=== PATIENT | female | born 1975 | race Caucasian/White ===

== ENCOUNTER 2018-05-24 16:32 | Emergency (ER) | payer BC, OTHER ==
[2018-05-24] MEDS ORDERED: LORazepam 2 MG/ML INJ IVP ONE (17:12)
[2018-05-24] MEDS ORDERED: NS 1,000 ML IV ONE (17:12)
--- NOTE | 2018-05-24 17:17 | EDPHY ---
General Time Seen by Provider: 05/24/18 16:55 Narrative: CHIEF COMPLAINT: Heart racing, chest pressure, short of breath HISTORY OF PRESENT ILLNESS: Patient presents with complaints of heart racing, chest pressure, shortness of breath. Symptoms started earlier today while at work around 3:30 p.m.. A fit bit watch that she was wearing showed a heart rate of 120 beats per minute. She felt some lightheadedness with this. Constant duration. No predictable modifying factors for this. She contacted a co-worker who helped her, and she presents here with her spouse. She has no extremity erythema edema or pain. No history of venous thrombolic event. No use of exogenous hormones. No recent travel or surgery. No hemoptysis. No cough. No fever. No headache or neck pain. No previous incidence of this or history of coronary artery disease. She does have some history of anxiety and depression. There may be a component to this she thinks. No other associated complaints or modifying factors. REVIEW OF SYSTEMS: 10 systems were reviewed and negative with the exception of the elements mentioned in the history of present illness. PCP: Dr. Enriqueta Maloney SPECIALISTS: None currently PAST MEDICAL HISTORY: Anxiety, depression PAST SURGICAL HISTORY: No recent surgical history. Tonsillectomy remotely. Ocular surgery remotely SOCIAL HISTORY: Quit smoking 2002. Lives independently with her spouse and 2 children. Works in finance. FAMILY HISTORY: Noncontributory. No 1st degree relatives with coronary artery disease. EXAMINATION: Vitals: Triage VS reviewed General Appearance: Alert, no distress. Anxious. Nontoxic and well-appearing. Head: normocephalic, atraumatic Eyes: Pupils equal and round, no conjunctival pallor or injection ENT, Mouth: Mucous membranes moist Neck: Normal inspection, supple, non-tender Respiratory: Lungs are clear to auscultation Cardiovascular: Regular rate and rhythm. No murmur. Good signs of perfusion distally. Radial pulses and DP pulses are symmetric. Gastrointestinal: Abdomen is soft and nontender Back: non-tender, no bony abnormalities Neurological: A&O, nonfocal, normal gait Skin: Warm and dry, no rash Extremities: Nontender, no pedal edema Psychiatric: Anxious mood and affect. DIFFERENTIAL DIAGNOSES: Including but not limited to PE, anxiety, ACS, stable angina, unstable angina, MDM: 5:10 p.m. Shortness of breath, chest pressure and intermittent palpitations over the past. She is in no acute distress but does appear to be somewhat anxious and does have some intermittent tachycardia. The highest heart rate I witnessed is 100 while I was in the room. EKG is unremarkable with sinus rhythm at 90 beats per minute. She reports a heart rate of 120 at work this afternoon. I have ordered laboratory studies, chest x-ray, IV fluid and Ativan. Cardiac workup will be commenced. She is perc negative here, but with her heart rate greater than 100 at home, I have ordered a D-dimer. [place] heart score is 1. 5:50 p.m. CBC, chemistry, troponin, D-dimer and BNP are all within normal limits. Chest x -ray pending. 6:30 p.m. Patient re-evaluated. She is feeling much better after the Ativan only. I did not intervene otherwise. I discussed the negative findings. We discussed shared pathway decision making. I did recommend an offer monitoring her here for a repeat, 4 hr troponin. I also offered admission to the hospital. She has consented these and would like to go home. She states that she is feeling much better. She has no chest pain. She has some minimal dizziness that is non vertiginous. I discussed risks, benefits and alternatives between she and her spouse. I do feel that she has the ability to make that decision that she has made to go home. We discussed that she may return here at any time should she change her mind. We discussed that she needs to return here for any return of her chest pain, elevated heart rate, syncope or exertional complaints. She is comfortable this plan. She will contact her primary care physician. I will order a cardiology outpatient consultation. She is well-appearing and discharged home stable condition with normal vital signs. SUPERVISION: Patient was independently examined, but I discussed the case with my secondary supervising physician Dr. Turner CONSULTATION: None. Outpatient cardiology referral - Diagnostics Imaging Results: Imaging Impressions Chest X-Ray 05/24/18 17:16 Impression: Negative. - History Smoking Status: Former smoker - Objective Vital Signs: Initial Vital Signs Temperature (C) 97.3 F 05/24/18 16:40 Heart Rate 93 05/24/18 16:40 Respiratory Rate 19 05/24/18 16:40 Blood Pressure 138/77 H 05/24/18 16:40 O2 Sat (%) 96 05/24/18 16:40 O2 Delivery Mode Room Air Allergies/Adverse Reactions: Penicillins Allergy (Severe, Verified 05/24/18 16:39) Hives Home Medications: Medication Instructions Recorded Bupropion HCl 05/24/18 Spironolactone 05/24/18 VYVANSE 05/24/18 Zoloft 50mg (*) 05/24/18 Laboratory Results: Laboratory Results 05/24/18 16:58 05/24/18 16:58 05/24/18 05/24/18 05/24/18 17:13 16:58 16:58 WBC RBC Hgb Hct MCV MCH MCHC RDW Plt Count MPV Neut % (Auto) Lymph % (Auto) Sharkey % (Auto) Eos % (Auto) Baso % (Auto) Nucleat RBC Rel Count Absolute Neuts (auto) Absolute Lymphs (auto) Absolute Monos (auto) Absolute Eos (auto) Absolute Basos (auto) Absolute Nucleated RBC Immature Gran % Immature Gran # D-Dimer < 0.27 ug/mLFEU ug/mLFEU (0.00-0.50) Sodium 137 mEq/L mEq/L (135-145) Potassium 3.5 mEq/L mEq/L (3.3-5.0) Chloride 105 mEq/L mEq/L (97-110) Carbon Dioxide 21 mEq/l L mEq/l (22-31) Anion Gap 11 mEq/L mEq/L (6-14) BUN 15 mg/dL mg/dL (7-23) Creatinine 0.9 mg/dL mg/dL (0.6-1.0) Estimated GFR > 60 Glucose 98 mg/dL mg/dL (70-100) Calcium 9.4 mg/dL mg/dL (8.5-10.4) POC Troponin I 0.01 ng/mL ng/mL (0.00-0.08) NT-Pro-B Natriuret Pep 32 pg/mL pg/mL (0-125) Lipase 80 IU/L IU/L (23-300) 05/24/18 16:58 WBC 8.03 10^3/uL 10^3/uL (3.80-9.50) RBC 4.46 10^6/uL 10^6/uL (4.18-5.33) Hgb 14.5 g/dL g/dL (12.6-16.3) Hct 38.9 % % (38.0-47.0) MCV 87.2 fL fL (81.5-99.8) MCH 32.5 pg pg (27.9-34.1) MCHC 37.3 g/dL H g/dL (32.4-36.7) RDW 12.2 % % (11.5-15.2) Plt Count 235 10^3/uL 10^3/uL (150-400) MPV 8.1 fL L fL (8.7-11.7) Neut % (Auto) 68.0 % % (39.3-74.2) Lymph % (Auto) 20.8 % % (15.0-45.0) Sharkey % (Auto) 8.5 % % (4.5-13.0) Eos % (Auto) 2.2 % % (0.6-7.6) Baso % (Auto) 0.4 % % (0.3-1.7) Nucleat RBC Rel Count 0.0 % % (0.0-0.2) Absolute Neuts (auto) 5.46 10^3/uL 10^3/uL (1.70-6.50) Absolute Lymphs (auto) 1.67 10^3/uL 10^3/uL (1.00-3.00) Absolute Monos (auto) 0.68 10^3/uL 10^3/uL (0.30-0.80) Absolute Eos (auto) 0.18 10^3/uL 10^3/uL (0.03-0.40) Absolute Basos (auto) 0.03 10^3/uL 10^3/uL (0.02-0.10) Absolute Nucleated RBC 0.00 10^3/uL 10^3/uL (0-0.01) Immature Gran % 0.1 % % (0.0-1.1) Immature Gran # 0.01 10^3/uL 10^3/uL (0.00-0.10) D-Dimer Sodium Potassium Chloride Carbon Dioxide Anion Gap BUN Creatinine Estimated GFR Glucose Calcium POC Troponin I NT-Pro-B Natriuret Pep Lipase Medications Given: Discontinued Medications Sodium Chloride (Ns) 1,000 mls @ 0 mls/hr IV EDNOW ONE; Wide Open PRN Reason: Protocol Stop: 05/24/18 17:13 Last Admin: 05/24/18 17:19 Dose: 1,000 mls Lorazepam (Ativan Injection) 1 mg IVP EDNOW ONE Stop: 05/24/18 17:13 Last Admin: 05/24/18 17:19 Dose: 1 mg Point of Care Test Results: Chemistry 05/24/18 17:13 POC Troponin I 0.01 ng/mL ng/mL (0.00-0.08) Urine Collection Date 05/24/18 Collection Time 18:20 HCG Results Negative Departure - Departure Disposition: Home, Routine, Self-Care Clinical Impression: Shortness of breath Chest pain Qualifiers: Chest pain type: unspecified Qualified Code(s): R07.9 - Chest pain, unspecified Condition: Good Instructions: Chest Pain (ED), Heart Palpitations (ED) Additional Instructions: 1. Contact Cardiology and your primary care physician tomorrow morning to be seen within 48 hr 2. Recommend rest and increase fluid intake the next few days 3. Return to the emergency department should you change your mind and wish to continue your cardiac workup here 4. Return to emergency department if your chest pain returns, lightheadedness, dizziness or loss of consciousness Referrals: Enriqueta Maloney MD [Primary Care Provider] - As per Instructions Matthew Hernandez MD [Medical Doctor] - As per Instructions Stand Alone Forms: Work Excuse
[2018-05-24 17:21] LABS: PLATELET COUNT 235 10^3/uL (150-400)
[2018-05-24 18:16] VITALS: BP 114/81
--- NOTE | 2018-05-24 21:27 | CPEKG ---
Test Reason : OPEN Blood Pressure : / mmHG Vent. Rate : 090 BPM Atrial Rate : 092 BPM P-R Int : 135 ms QRS Dur : 083 ms QT Int : 345 ms P-R-T Axes : 065 067 054 degrees QTc Int : 422 ms Sinus rhythm Probable left atrial enlargement Confirmed by George Turner ([id number]) on 05/24/2018 9:26:55 PM Referred By: Confirmed By:George Turner
== END 2018-05-24 18:46 | disposition home or self-care (01) ==
DX: R06.02 Shortness of breath (principal); R07.9 Chest pain, unspecified; E86.9 Volume depletion, unspecified; F41.8 Other specified anxiety disorders
CPT/HCPCS: 84484-PO; 96374; J2060